=== PATIENT | male | born 2000 | race African-American/Black ===

== ENCOUNTER 2025-06-01 16:17 | Emergency (ER) | payer OTHER, SELFPAY ==
[2025-06-01 16:28] VITALS: BP 140/97; PULSE 63; RESP 14; TEMP 36.7; O2SAT 100
--- NOTE | 2025-06-01 16:35 | ED.LOWEXIN ---
HPI - Extremity Injury (Lower) General Chief Complaint: Extremity Injury, Lower Stated Complaint: R Foot Pain Time Seen by Provider: 06/01/25 16:21 Source: patient Mode of arrival: ambulatory Limitations: no limitations History of Present Illness HPI Narrative: Vaughn is a 25-year-old male patient presenting to the clinic today with complaints of right foot pain x2 weeks. He reports he initially injured his foot 2 weeks ago was seen at the [facility] urgent care. He reports he is following up on his foot. States he is still having pain in the right lateral foot. Did x-rays at [facility] in they were negative for any fracture or malalignment per patient. He reports he has been wearing the boot when he is up ambulating. Feels as though his foot is swollen. Review of Systems Review of Systems: Pertinent positives per HPI. Patient denies any fever, chills, rash, headache, visual changes, dizziness, cough, shortness of breath, chest pain, palpitations, nausea, vomiting, diarrhea, constipation, abdominal pain, or any urinary issues. PMFSH Comments At the time of my signature, I reviewed and agree with the nursing past medical, surgical, social, and family history. There is no relevant family history pertinent to the patient complaint. Exam Narrative: General: Well-developed, well nourished, in no apparent distress Head: Normocephalic, atraumatic. Cardio: Regular rate and rhythm, s1 and s2 normal, no murmur appreciated. Resp: Clear to auscultation bilaterally, no rhonchi, rales, wheezing or rubs. Musculoskeletal: No deformity, tender to palpation over the lateral 5th metatarsal into the ankle joint, some pain with dorsal flexion against resistance, grossly normal range of motion, muscle strength strong and equal, peripheral pulse strong, no edema, no cyanosis, normal gait and station Course Course Emergency Course: Portions of this record may have been created with voice recognition software. Level of Care: Express Care Visit Vital Signs Vital signs: Vital Signs Temperature 36.7 C 06/01/25 16:28 Pulse Rate 63 06/01/25 16:28 Respiratory Rate 14 06/01/25 16:28 Blood Pressure 140/97 H 06/01/25 16:28 Pulse Oximetry 100 06/01/25 16:28 Oxygen Delivery Room Air 06/01/25 16:28 Temperature 36.7 C 06/01/25 16:28 Pulse Rate 63 06/01/25 16:28 Respiratory Rate 14 06/01/25 16:28 Blood Pressure 140/97 H 06/01/25 16:28 Pulse Oximetry 100 06/01/25 16:28 Oxygen Delivery Room Air 06/01/25 16:28 Vital signs reviewed MDM - Extremity Injury (Lower) MDM Narrative Medical decision making narrative: At the time of visit patient is resting comfortably on the exam table. Patient appears to be nontoxic. complaints of right foot pain x2 weeks. He reports he initially injured his foot 2 weeks ago was seen at the [facility] urgent care. He reports he is following up on his foot. States he is still having pain in the right lateral foot. Did x-rays at [facility] in they were negative for any fracture or malalignment per patient. He reports he has been wearing the boot when he is up ambulating. Feels as though his foot is swollen. On exam patient has no foot swelling/edema/redness. Has pain with dorsal flexion against resistance otherwise normal foot exam. Explained to the patient that I cannot do any further testing and can only repeat x-ray images if he wishes. Patient declined x-rays at this time. May need MRI of the foot if symptoms persist. I recommend follow-up with Ortho repeated doctor if his symptoms are worsening/persistent. Patient agrees to ortho referral. Plan: I suspect patient has acute foot pain likely strain. Dr. Kuo-orthopedic provider information given to the patient. Patient may call and schedule appointment. Supportive measures were discussed with the patient and they voiced understanding discharge instructions and agrees to treatment plan. Return precautions reviewed Differential Diagnosis Differential diagnosis: Likely fracture of toe and other (Fifth metatarsal fracture, foot sprain, soft tissue injury) Discharge Plan Discharge Clinical Impression: Acute pain of right foot Patient Disposition: Home Condition: Stable Instructions: Antibiotic Form, Foot Sprain (ED) Additional Instructions: Rest, ice, elevate, and wear walking boot as discussed Tylenol/motrin for pain as discussed. Gradually bear weight No running or sports until healed. Follow up with your PCP if symptoms persist more than 1 week. May follow-up with orthopedic provider Dr. Kuo-call office tomorrow to schedule appointment tomorrow Patient Language: Bhutanese Follow-up/Referrals: PHYSICIAN,CENTER MACHINE SET UP OPERATOR [Primary Care Provider] - Cesar Kuo MD [Physician] - 1 Day (Right foot sprain, acute pain-x-rays negative) Time of Disposition: 16:42 Quality NIHSS Nursing Documentation ED NIHSS nursing documentation: reviewed/agree
== END 2025-06-01 16:43 | disposition home or self-care (01) ==
PROVIDERS: Emergency Provider Nurse Practitioner Family
DX: M79.671 Pain in right foot (principal)
CPT/HCPCS: 99202; G0463